=== PATIENT | female | born 1945 | race Caucasian/White ===

== ENCOUNTER → 2023-02-28 10:26 | Outpatient (REF) | payer MEDICARE, OTHER, SELFPAY | LOC: RCS 10:26 | PROVIDERS: ATTENDING PHYSICIAN Student in an Organized Health Care Education/Training Program | DX: R06.09 Other forms of dyspnea (principal) | CPT/HCPCS: 93306 ==

== ENCOUNTER → 2023-08-18 14:26 | Outpatient (REF) | payer MEDICARE, OTHER, SELFPAY | LOC: WDC 14:26 | PROVIDERS: ATTENDING PHYSICIAN Student in an Organized Health Care Education/Training Program | DX: N64.4 Mastodynia (principal) | CPT/HCPCS: 76642; 77063; 77067 ==

== ENCOUNTER → 2023-08-25 13:27 | Outpatient (REF) | payer MEDICARE, OTHER, SELFPAY ==
[2023-08-25 14:34] LABS: % Basophils 1.1 % (0-2); % Eosinophils 2.3 % (0-6); % Immature Granulocytes 0.2 % (0-0.5); % Lymphocytes 29.5 % (20.5-51.1); % Monocytes 8.3 % (1.7-9.3); % Neutrophils 58.6 % (42.2-75.2); Absolute Basophils 0.1 10^3/uL (0-0.2); Absolute Eosinophils 0.1 10^3/uL (0-0.7); Absolute Lymphocytes 1.7 10^3/uL (1.2-3.4); Absolute Monocytes 0.5 10^3/uL (0.1-0.6); Absolute Neutrophils 3.3 10^3/uL (1.4-6.5); Hematocrit 39.7 % (37.0-47.0); Hemoglobin 13.5 g/dL (12.0-16.0); Mean Corpuscular Hgb 30.5 pg (27.0-31.0); Mean Corpuscular Volume 89.8 fL (81.0-99.0); Mean Platelet Volume 10.1 fL (7.4-10.4); Nucleated Red Blood Cells % 0 %; Platelet Count 313 10^3/uL (130-400); Red Blood Cell Count 4.42 10^6/uL (4.20-5.40); Red Cell Dist. Width 12.8 % (11.5-14.5); White Blood Cell Count 5.7 10^3/uL (4.8-10.8)
[2023-08-25 15:54] LABS: ALT (SGPT) 24 U/L (0-35); AST (SGOT) 27 U/L (14-36); Albumin 4.3 g/dl (3.5-5.0); Alkaline Phosphatase 62 U/L (38-126); Blood Urea Nitrogen 18 mg/dl (7-17); Calcium 9.6 mg/dl (8.4-10.2); Carbon Dioxide 27 mmol/L (22-30); Chloride 103 mmol/L (98-107); Glucose 88 mg/dl (70-99); Potassium 4.3 mmol/L (3.5-5.1); Sodium 135 mmol/L (135-145); Total Bilirubin 1.1 mg/dl (0.2-1.3); Total Protein 6.8 g/dl (6.3-8.2); eGFR > 60.00
[2023-08-25 17:01] LABS: Vitamin B12 415 pg/ml (239-931)
== END ==
LOC: REG 13:27
PROVIDERS: ATTENDING PHYSICIAN Internal Medicine; FAMILY PHYSICIAN Student in an Organized Health Care Education/Training Program
DX: M15.0 Primary generalized (osteo)arthritis (principal); Z51.81 Encounter for therapeutic drug level monitoring; R74.8 Abnormal levels of other serum enzymes; Z79.899 Other long term (current) drug therapy
CPT/HCPCS: 36415; 80053; 82607; 85025

== ENCOUNTER 2023-09-20 06:17 | Outpatient (RCR) | payer MEDICARE, OTHER, SELFPAY | END 2023-09-20 23:59 | disposition home or self-care (01) | LOC: RPT 06:17 | PROVIDERS: ATTENDING PHYSICIAN Internal Medicine; FAMILY PHYSICIAN Student in an Organized Health Care Education/Training Program | DX: M54.51 Vertebrogenic low back pain (principal); M79.604 Pain in right leg; M25.561 Pain in right knee; Z73.6 Limitation of activities due to disability | CPT/HCPCS: 97110; 97162 ==

== ENCOUNTER 2023-09-21 09:24 | Emergency (ER) | payer MEDICARE, OTHER, SELFPAY ==
[2023-09-21 09:34] VITALS: BP 157/92
[2023-09-21 10:41] VITALS: BP 124/74
[2023-09-21 10:54] LABS: % Basophils 0.9 % (0-2); % Eosinophils 0.6 % (0-6); % Immature Granulocytes 0.2 % (0-0.5); % Lymphocytes 25.5 % (20.5-51.1); % Monocytes 8.1 % (1.7-9.3); % Neutrophils 64.7 % (42.2-75.2); Absolute Lymphocytes 1.2 10^3/uL (1.2-3.4); Absolute Monocytes 0.4 10^3/uL (0.1-0.6); Hematocrit 38.5 % (37.0-47.0); Hemoglobin 13.1 g/dL (12.0-16.0); Mean Corpuscular Hgb 30.8 pg (27.0-31.0); Mean Corpuscular Volume 90.4 fL (81.0-99.0); Mean Platelet Volume 10.2 fL (7.4-10.4); Nucleated Red Blood Cells % 0 %; Platelet Count 236 10^3/uL (130-400); Red Blood Cell Count 4.26 10^6/uL (4.20-5.40); White Blood Cell Count 4.7 10^3/uL (4.8-10.8)
[2023-09-21 11:00] VITALS: BP 129/70
[2023-09-21 11:13] LABS: Blood Urea Nitrogen 17 mg/dl (7-17); Calcium 9.7 mg/dl (8.4-10.2); Carbon Dioxide 30 mmol/L (22-30); Chloride 107 mmol/L (98-107); Glucose 92 mg/dl (70-99); Potassium 4.5 mmol/L (3.5-5.1); Sodium 139 mmol/L (135-145); eGFR > 60.00
--- NOTE | 2023-09-21 11:15 | ED.GENMED ---
History of Present Illness
General
Chief Complaint: Visual Problem
Source: patient
Exam Limitations: none
Time Seen by Provider: 09/21/23 09:48
Travel History
Have you had any contact with someone who has COVID-19?: No
Do you have any symptoms of coronavirus? Fever > 100 degrees, chills, cough, shortness of breath, sore throat, loss of taste or smell, muscle aches, or headache?: No
History of Present Illness
History of Present Illness:
77-year-old female legally blind presents with decreased vision in her right eye. She normally can see light and can make out objects. However she is a decreased light and decreased object notation since this morning relatively suddenly. No other
neurologic symptoms no headache no temporal pain no numbness tingling or weakness. She also complains of some low and mid back pain that she has had for a while with some pain in the right shoulder. These symptoms are very positional in nature.
Past History
Past History
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
ED Past Surgical History: Gynecological and Orthopedic
Review of Systems
Review of Systems
All Other Systems: Not applicable
Constitutional: Reports no symptoms
Neurological: Denies dizzy, headache or weakness
Phy Exam
Physical Exam
Physical Exam:
GENERAL: Alert and oriented in no apparent distress
EYE: Orbits normal. Legally blind.
NECK: Supple, no carotid bruit
ENT: Pharynx without erythema
CARDIAC: Regular rate and rhythm without any obvious murmurs.
LUNGS: Clear breath sounds,normal
ABDOMEN: Soft, without focal tenderness or distention
NEUROLOGICAL: Alert and oriented , grossly non-focal. Speech normal. Strength normal. Light touch intact
SKIN: Warm and dry, no rash or lesion, no discoloration, skin intact.
MUSCULOSKELETAL: No edema,no deformity.Good color
PSYCH: Normal and appropriate interaction.
Course
Orders/Labs/Results
Orders:
Orders
09/21/23 09:40
Electrocardiogram (*1) Urgent
Reason for Study: Other
Other Reason for Exam: arm
Head wo Contrast CT [CT Head W/o Iv Contrast] Urgent
Comment:
Reason For Exam: visual changes
EKG- Treatment ONCE
09/21/23 10:26
IV Insert/Care/Rem.- Treatment PRN
09/21/23 10:36
Basic Metabolic Panel Urgent
Complete Blood Count/With Diff Urgent
Erythrocyte Sed Rate Urgent
09/21/23 10:42
MA Neck With Contrast Urgent
Reason For Exam: Right sided visual loss
Recent pill cam endoscopy?: No
MR Brain W/o & With Contrast Urgent
Reason For Exam: Right-sided visual loss
Recent pill cam endoscopy?: No
Abnormal Lab Results
09/21/23
10:36
WBC 4.7 L 10^3/uL
(4.8-10.8)
09/21/23 10:36
09/21/23 10:36
Vital Signs
Initial and Last Documented VS:
Initial Vital Signs
Temp Pulse Resp BP Pulse Ox
98.7 F 84 18 157/92 98
09/21/23 09:34 09/21/23 09:34 09/21/23 09:34 09/21/23 09:34 09/21/23 09:34
Last Documented Vital Signs
Temp Pulse Resp BP Pulse Ox
98.7 F 71 19 129/93 98
09/21/23 09:34 09/21/23 13:14 09/21/23 13:14 09/21/23 13:14 09/21/23 13:14
*Pulse Oximetry
Patient hypoxic: no
*EKG
Interpreted by ED Provider?: Yes
Interpretation: normal
Comparison EKG: no comparison EKG present
Heart Rate: 77
Rhythm: sinus
Diamond: normal axis
Interval: normal interval
QRS Pattern: normal QRS
Ischemia: no ischemia
*Critical Care Note
Total Time (30-74mins, 75-104mins- exclusive of procedures): Not Applicable
Update Note
Update Note:
Discussed with neurology. MRA neck MRI brain if all stable patient can be discharged to follow-up with ophthalmology. Ophthalmology was contacted
3 texted ophthalmology for close follow-up. Patient will go to the office. As for her back pain it is very musculoskeletal in nature. Notes it is worse when she lifts her arm. She is tender at the right medial scapula. Patient states she has
had a rash for a month but I do not appreciate a rash or specifically a vesicular rash
ED Attending Note
-
Portions of this chart may have been created with voice recognition software.� Occasional wrong word or��sound alike� substitutions may have occurred due to the inherent limitations of voice recognition software.
Discharge Plan
Departure
Patient Disposition: Home (Routine Discharge)
Date of Disposition: 09/21/23
Time of Disposition: 13:38
Patient with high blood pressure during this ER visit?: Yes
Discharge Problem:
Right visual loss
Instructions: BLOOD PRESSURE
Prescriptions:
No Action
alendronate 70 mg Tablet
70 mg PO MO@0800
calcium carbonate [Calcium 600] 600 mg calcium (1,500 mg) Tablet
1,200 mg PO HS
ibuprofen [Advil] 200 mg Tablet
400 mg PO DAILYPRN PRN (Reason: mild pain)
Tylenol PM Extra Strength 25-500 mg Tablet
2 tab PO HS PRN (Reason: sleep)
celecoxib 100 mg Capsule
100 mg PO BID PRN (Reason: mild pain/inflammation)
carboxymethylcellulose sodium [Refresh] 1 % Drops, Liquid Gel
1 drp BOTH EYES TIDPRN PRN (Reason: dry eyes)
Patient Comments:
09/21/2023, preservative free.
cyclosporine [Restasis] 0.05 % Dropperette
1 drp BOTH EYES TID
Patient Comments:
09/21/2023, prescribed Q12H but pt. takes TID.
Xiidra 5 % Dropperette
1 drp BOTH EYES BID
Fish Oil-Vit D3
3 cap PO TID
Referrals:
Maryjane Menjivar MD [Family Provider] - Follow up in 2-3 days
Alla Mustafa MD [Active] -
Activity Restrictions/Additional Instructions:
We will let you know when to see your etl lead
Return with increasing visual issues headaches any other neurologic issues etc.
Interventions
Interventions:
*Nursing Disposition Last Done: 09/21/23 13:59
ED- Neurological Assessment Last Done: 09/21/23 13:58
ED-EENT Assessment Last Done: 09/21/23 13:58
Discharge Date and Time
Discharge Date/Time: 09/21/23 14:00
Print Language: BURMESE
[2023-09-21 11:18] LABS: Erythrocyte Sed Rate 12 mm/hour (0-20)
[2023-09-21 13:12] VITALS: BP 129/93
[2023-09-21 13:14] VITALS: BP 129/93
== END 2023-09-21 14:00 | disposition home or self-care (01) ==
LOC: EMR 09:24
PROVIDERS: EMERGENCY PHYSICIAN Emergency Medicine; FAMILY PHYSICIAN Student in an Organized Health Care Education/Training Program
DX: H53.131 Sudden visual loss, right eye (principal); M54.6 Pain in thoracic spine; R03.0 Elevated blood-pressure reading, without diagnosis of hypertension
CPT/HCPCS: 70450; 70548; 70553; 80048; 85025; 85652; 93005; 99285; A9585

== ENCOUNTER 2023-11-01 10:03 | Outpatient (RCR) | payer MEDICARE, OTHER, SELFPAY | END 2023-11-01 23:59 | disposition home or self-care (01) | LOC: RPT 10:03 | PROVIDERS: ATTENDING PHYSICIAN Internal Medicine; FAMILY PHYSICIAN Student in an Organized Health Care Education/Training Program | DX: M25.561 Pain in right knee (principal); M79.604 Pain in right leg; M54.51 Vertebrogenic low back pain; Z73.6 Limitation of activities due to disability | CPT/HCPCS: 97110 ==

== ENCOUNTER 2023-11-28 09:24 | Outpatient (RCR) | payer MEDICARE, OTHER, SELFPAY | END 2023-11-28 23:59 | disposition home or self-care (01) | LOC: RPT 09:24 | PROVIDERS: ATTENDING PHYSICIAN Internal Medicine; FAMILY PHYSICIAN Student in an Organized Health Care Education/Training Program | DX: M25.561 Pain in right knee (principal); M79.604 Pain in right leg; M54.51 Vertebrogenic low back pain; Z73.6 Limitation of activities due to disability | CPT/HCPCS: 97110; 97140 ==

== ENCOUNTER → 2024-01-16 11:50 | Outpatient (REF) | payer MEDICARE, OTHER, SELFPAY | LOC: RAD 11:50 | PROVIDERS: ATTENDING PHYSICIAN Internal Medicine; FAMILY PHYSICIAN Student in an Organized Health Care Education/Training Program | DX: M15.0 Primary generalized (osteo)arthritis (principal) | CPT/HCPCS: 72110; 73560; 73610 ==